=== PATIENT | male | born 1980 | race Caucasian/White ===

== ENCOUNTER 2022-12-07 17:20 | Inpatient (IN) | payer MEDICAID ==
[~2022-12-07] VITALS: Ht 182.9 cm; Wt 115.2 kg
[2022-12-07 17:25] VITALS: BP 136/87
--- NOTE | 2022-12-07 17:32 | NUR ---
42/M BIBA FROM [facility] C/O HEART PALPITATION ONSET TODAY. PT REPORTS HAVING A GROUND LEVEL FALL AND PRESENTS WITH MILD ABRASION TO EYEBROW. DENIES NAUSEA OR VOMITING. DENIES CP OR SOB. AAO4, AMBULATORY, TACHY 140. IV ESTABLISHED TO LEFT AC WITH 18G BY EMS PMH: MENTAL INCAPICITY
[2022-12-07] MEDS ORDERED: NACL 0.9% 1,000 ML IV ONE ×3 (18:00→22:10)
--- NOTE | 2022-12-07 18:20 | NUR ---
PT WENT TO XR
--- NOTE | 2022-12-07 18:30 | NUR ---
PT BACK FROM XR
[2022-12-07 18:41] LABS: BASOPHILS # (AUTO) 0.1 K/uL (0.00-0.22); BASOPHILS % (AUTO) 0.8 % (0.0-2.0); EOSINOPHILS % (AUTO) 0.3 % (0.0-4.0); HEMOGLOBIN 9.2 g/dL (12.0-18.0); LYMPHOCYTES # (AUTO) 1.7 K/uL (2.0-11.5); LYMPHOCYTES % (AUTO) 13.2 % (20.5-51.1); MEAN CORPUSCULAR HEMOGLOBIN 31 pg (27-31); MEAN CORPUSCULAR HGB CONC 34 g/dL (33-37); MONOCYTES # (AUTO) 0.7 K/uL (0.8-1.0); MONOCYTES % (AUTO) 5.7 % (1.7-9.3); NEUTROPHILS # (AUTO) 10.6 K/uL (1.8-7.7); PLATELET COUNT (AUTO) 335 K/uL (140-450); RED CELL DISTRIBUTION WIDTH 15.8 % (11.6-13.7); WHITE BLOOD COUNT (AUTO) 13.2 K/uL (4.8-10.8)
[2022-12-07 19:12] LABS: ALBUMIN 3.1 g/dL (3.4-5.0); ASPARTATE AMINOTRANSFERASE 12 U/L (15-37); CARBON DIOXIDE 23.1 mmol/L (21-32); CHLORIDE 109 mmol/L (98-107); CREATININE 1.3 mg/dL (0.6-1.3); GFR ARICAN-AMERICAN 78 mL/min (>90); GLUCOSE 160 mg/dL (74-106); MAGNESIUM 1.7 mg/dL (1.8-2.4); PHOSPHORUS 2.2 mg/dL (2.5-4.9); POTASSIUM 4.1 mmol/L (3.5-5.1); SODIUM SERUM 137 mmol/L (136-145); THYROID STIMULATING HORMONE 3.69 uIU/mL (0.34-3.74); TOTAL BILIRUBIN 0.2 mg/dL (0.0-1.0); UREA NITROGEN, BLOOD 35 mg/dL (7-18)
--- NOTE | 2022-12-07 19:30 | NUR ---
PT IS GETING THE FLUID. HE IS AWAKE AND ALERT X4. HE FOLLOWS THE COMAND AND ANSWERS QUESTIONS
--- NOTE | 2022-12-07 20:00 | NUR ---
His caregiver called to get an update and he gave the list of home meds taken at home.
--- NOTE | 2022-12-07 21:00 | NUR ---
pt went to restroom and had bowel movement.
[2022-12-07 21:23] LABS: APPEARANCE,URINE SLIGHTLY CLOUDY (CLEAR); COLOR,URINE AMBER (YELLOW)
[2022-12-07 21:24] LABS: BILIRUBIN,URINE NEGATIVE (NEGATIVE); BLOOD, URINE NEGATIVE (NEGATIVE); LEUKOCYTE ESTERASE ,URINE 3+ (NEGATIVE); NITRITE, URINE NEGATIVE (NEGATIVE); UGLUCOSE NEGATIVE (NEGATIVE)
[2022-12-07 21:39] LABS: OTHER CASTS, URINE None Seen /LPF (None Seen)
[2022-12-07] MEDS ORDERED: cefTRIAXone 1,000 MG VIAL ONE (22:04)
--- NOTE | 2022-12-07 22:11 | NUR ---
BELONGINGS LIST DONE.
[2022-12-07] MEDS ORDERED: MAG SULF 2000 MG/WATER PREMIX 50 ML IV ONE (22:15)
[2022-12-07] MEDS ORDERED: FERR-20 PO (22:47)
[2022-12-07] MEDS ORDERED: LORA10TA19 PO (22:47)
[2022-12-07] MEDS ORDERED: SYN.05 PO (22:47)
[2022-12-07] MEDS ORDERED: HAL5 PO (22:47)
[2022-12-07] MEDS ORDERED: CLON-1170 PO (22:47)
[2022-12-07] MEDS ORDERED: HYDR25CA1 PO (22:47)
[2022-12-07] MEDS ORDERED: PANT40EC PO (22:47)
[2022-12-07] MEDS ORDERED: QUET25TA PO (22:51)
[2022-12-07] MEDS ORDERED: BENZ2TAB27 PO (22:59)
[2022-12-07] MEDS ORDERED: NACL 0.9% 1,000 ML IV SCH (23:05)
--- NOTE | 2022-12-08 03:57 | NUR ---
pt asking for food. snack was provided.
--- NOTE | 2022-12-08 04:30 | NUR ---
Pt went to rest room and had bowel movement
[2022-12-08 07:14] LABS: BASOPHILS # (AUTO) 0.1 K/uL (0.00-0.22); BASOPHILS % (AUTO) 0.5 % (0.0-2.0); EOSINOPHILS # (AUTO) 0.1 K/uL (0-0.4); EOSINOPHILS % (AUTO) 0.7 % (0.0-4.0); LYMPHOCYTES # (AUTO) 1.7 K/uL (2.0-11.5); LYMPHOCYTES % (AUTO) 15.7 % (20.5-51.1); MEAN CORPUSCULAR HEMOGLOBIN 31 pg (27-31); MEAN CORPUSCULAR HGB CONC 35 g/dL (33-37); MEAN CORPUSCULAR VOLUME 88.5 fL (80-94); MONOCYTES # (AUTO) 0.9 K/uL (0.8-1.0); MONOCYTES % (AUTO) 7.9 % (1.7-9.3); NEUTROPHILS # (AUTO) 8.1 K/uL (1.8-7.7); NEUTROPHILS % (AUTO) 75.2 % (42.2-75.2); PLATELET COUNT (AUTO) 207 K/uL (140-450); RED BLOOD CELL COUNT(AUTO) 2.11 MIL/uL (4.20-6.10); RED CELL DISTRIBUTION WIDTH 15.5 % (11.6-13.7); WHITE BLOOD COUNT (AUTO) 10.8 K/uL (4.8-10.8)
[2022-12-08 07:16] LABS: ANION GAP 11.4 (8-16); CARBON DIOXIDE 24.1 mmol/L (21-32); CREATININE 1.1 mg/dL (0.6-1.3); POTASSIUM 3.5 mmol/L (3.5-5.1)
[2022-12-08 07:24] LABS: HEMOGLOBIN 6.6 g/dL (12.0-18.0)
[2022-12-08 07:25] LABS: HEMATOCRIT 18.7 % (36-52)
--- NOTE | 2022-12-08 07:29 | NUR ---
DR RAANGO NOTIFIED OF PATIENT'S CRITICAL H&H. PER DR ARANGO TELEPHONE ORDER, PLACED ORDER FOR 1 UNIT OF BLOOD TRANSFUSION.
--- NOTE | 2022-12-08 07:37 | NUR ---
PERFORMED FOBT PER DR ARANGO TELEPHONE ORDER. PATIENT POSITIVE FOR OCCULT BLOOD. DR ARANGO NOTIFIED.
--- NOTE | 2022-12-08 07:42 | NUR ---
Patient will be admitted to care of DR ARANGO. Admited to [facility]. Will go to [id number]. Belongings list completed. Report to JAMARCUS BAKER.
--- NOTE | 2022-12-08 08:00 | NUR ---
PT ARRIVED IN THE UNIT , GOT REPORT FROM THE ER NURSE
--- NOTE | 2022-12-08 09:18 | NUR ---
PATIENT HAS BEEN SCREENED AND CATEGORIZED MODERATE NUTRITION RISK. PATIENT WILL BE SEEN WITHIN 3-5 DAYS OF ADMISSION. REVIEWED BY AAYUSH ADDISON RD
[2022-12-08] MEDS ORDERED: CLONIDINE HYDROCHLORIDE 0.1 MG TAB PO PRN (09:25)
[2022-12-08] MEDS ORDERED: HYDROcodone/APAP 7.5/325 MG 1 TAB PO PRN (09:25)
[2022-12-08] MEDS ORDERED: ACETAMINOPHEN 325 MG TAB PO PRN (09:25)
[2022-12-08] MEDS ORDERED: POTASSIUM CHLORIDE 10 MEQ TABER PO PRN (09:25)
[2022-12-08] MEDS: NACL 0.9% 1,000 ML IV SCH (09:25)
[2022-12-08] MEDS ORDERED: MAG SULF 2000 MG/WATER PREMIX 50 ML IV PRN (09:25)
[2022-12-08] MEDS ORDERED: ONDANSETRON 4 MG/2 ML VIAL IVP PRN (09:25)
[2022-12-08 10:31] LABS: CHOL/HDL RATIO 3.4 (1-4.5); FREE T4 (FREE THYROXINE) 0.96 ng/dL (0.76-1.46); THYROID STIMULATING HORMONE 4.51 uIU/mL (0.34-3.74)
[2022-12-08 10:34] LABS: PROTHROMBIN TIME 10.9 secs (10.8-13.4)
[2022-12-08 12:00] VITALS: BP 140/81
[2022-12-08 16:00] VITALS: BP 132/86
[2022-12-08] MEDS: SENNA 8.6 MG TAB PO SCH (17:02)
[2022-12-08] MEDS: METOCLOPRAMIDE 10 MG/2 ML INJ VIAL IVP SCH (17:03)
--- NOTE | 2022-12-08 17:37 | NUR ---
GIVEN ONE UNIT OF BLOOD, NO REACTION. COMPLETED. BEFORE THE BLOOD PT VOMITED GROUND COFFEE BLOOD ON THE FLOOR . MEDICATED ORDERED FOR N\V. NPO AFTER MID NIGHT FOR EGD CONSENT NEED TO BE OBTAINED BY CALLING [phone] [facility] [place]
--- NOTE | 2022-12-08 19:15 | NUR ---
RECEIVED PT FROM MORNING SHIFT NURSE. PT IS LYING ON THE BED. PT IS AOX2-3, AMBULATORY, ABLE TO VERBALIZE NEEDS AND ABLE TO FOLLOW COMMANDS. PT IS ON ROOM AIR AND ON NPO EXCEPT MEDS. PT HAS IV ON RIGHT AC GAUGE 20 RUNNING WITH NS AT 100 ML/HR. PT SKIN IS INTACT BUT THERE'S SCRATCHED ON THE RIGHT FACE . PT DENIES PAIN. NO S/S OF RESPIRATORY DISTRESS NOTED. ALL SAFETY MEASURES IMPLEMENTED. BED IN LOW POSITION, BED WHEELS ON LOCK AND CALL LIGHT WITHIN REACH.
[2022-12-08 20:00] VITALS: BP 133/69
[2022-12-08] MEDS: HALOPERIDOL 5 MG TAB PO SCH (20:54)
[2022-12-08] MEDS: DOCUSATE SODIUM 100 MG GELCAP PO SCH (20:54)
[2022-12-08] MEDS: hydrOXYzine PAMOATE 25 MG CAP PO SCH (20:54)
[2022-12-08] MEDS: QUEtiapine FUMARATE 25 MG TAB PO SCH (20:54)
--- NOTE | 2022-12-08 20:54 | NUR ---
ALL SCHEDULED AND PRESCRIBED MEDICATION WAS GIVEN TO PT PER MD ORDER. ALL SAFETY MEASURES IMPLEMENTED. BED IN LOW POSITION, BED WHEELS ON LOCK AND CALL LIGHT WITHIN REACH.
[2022-12-08] MEDS ORDERED: BENZTROPINE MESYLATE PO SCH (21:00)
[2022-12-08] MEDS ORDERED: PANTOPRAZOLE 40 MG INJ VIAL IVP SCH (21:00)
[2022-12-08] MEDS ORDERED: BENZTROPINE 1 MG TAB PO SCH (21:00)
--- NOTE | 2022-12-09 00:45 | NUR ---
STATED BLOOD TRANSFUSION TO THE PT WITH PRE TRANSFUSION VS OF BP-124/80, T-9704, P-94, RR-18 WITHOUT PAIN. ALL SAFETY MEASURES IMPLEMENTED. BED IN LOW POSITION, BED WHEELS ON LOCK AND CALL LIGHT WITHIN REACH.
--- NOTE | 2022-12-09 02:00 | NUR ---
CONTACTED PT'S PIPE AND BOILER COVERS SUPERVISOR FOR EGD CONSENT FOR 5X STARTED AT 2030 UNTIL NOW BUT DIDN'T PARTS SALES ADVISOR/ANSWER THE PHONE. I JUST LEFT A MESSAGE TO RETURN A CALL. WILL ENDORSED IT TO THE MORNING NURSE.
--- NOTE | 2022-12-09 03:20 | NUR ---
BLOOD TRANSFUSION WAS DONE WITH VS; BP-120/70, T-97.4, P-88, RR-17 SATING AT 96% ALL SAFETY MEASURES IMPLEMENTED. BED IN LOW POSITION, BED WHEELS ON LOCK AND CALL LIGHT WITHIN REACH.
[2022-12-09] MEDS: NACL 0.9% 1,000 ML IV SCH (05:25)
[2022-12-09 07:12] LABS: BASOPHILS % (AUTO) 0.4 % (0.0-2.0); EOSINOPHILS # (AUTO) 0.1 K/uL (0-0.4); EOSINOPHILS % (AUTO) 1.2 % (0.0-4.0); HEMOGLOBIN 7.5 g/dL (12.0-18.0); LYMPHOCYTES # (AUTO) 1.2 K/uL (2.0-11.5); LYMPHOCYTES % (AUTO) 14.7 % (20.5-51.1); MEAN CORPUSCULAR HEMOGLOBIN 30 pg (27-31); MEAN CORPUSCULAR HGB CONC 34 g/dL (33-37); MEAN CORPUSCULAR VOLUME 88.4 fL (80-94); MONOCYTES # (AUTO) 0.6 K/uL (0.8-1.0); MONOCYTES % (AUTO) 7.6 % (1.7-9.3); NEUTROPHILS % (AUTO) 76.1 % (42.2-75.2); PLATELET COUNT (AUTO) 165 K/uL (140-450); RED BLOOD CELL COUNT(AUTO) 2.49 MIL/uL (4.20-6.10); RED CELL DISTRIBUTION WIDTH 15.9 % (11.6-13.7); WHITE BLOOD COUNT (AUTO) 7.8 K/uL (4.8-10.8)
[2022-12-09 07:27] LABS: CARBON DIOXIDE 23.7 mmol/L (21-32); CREATININE 0.9 mg/dL (0.6-1.3); POTASSIUM 3.7 mmol/L (3.5-5.1)
[2022-12-09 07:37] LABS: MAGNESIUM 1.8 mg/dL (1.8-2.4); PHOSPHORUS 2.2 mg/dL (2.5-4.9)
--- NOTE | 2022-12-09 07:41 | NUR ---
PT IS STABLE. NO ACUTE EVENTS THROUGHOUT THE NIGHT.NO S/SX OF DISTRESS AT THIS MOMENT.ALL NEEDS ATTENDED. ALL PRECAUTIONS IN PLACE. CALL LIGHT WITHIN REACH. ENDORSED TO DAY RN.
--- NOTE | 2022-12-09 07:43 | NUR ---
RECEIVED REPORT FROM SHEET FED PRINTER NURSE, CYNTHIA, FOR CONTINUITY OF CARE. PT IN BED RESTING AT THIS TIME. RESPIRATIONS ARE EVEN AND UNLABORED, ON ROOM AIR. NO SIGNS OF DISTRESS NOTED. PT IS ALERT AND ORIENTED X3, ABLE TO VERBALIZE NEEDS. NO SIGNS OF PAIN OR DISCOMFORT NOTED. CALL LIGHT WITHIN REACH. ALL SAFETY MEASURES IN PLACE.
[2022-12-09 08:00] VITALS: BP 133/61
[2022-12-09] MEDS ORDERED: LEVOTHYROXINE 0.05 MG TAB PO SCH (09:00)
[2022-12-09] MEDS ORDERED: FERROUS SULFATE 325 MG TABEC PO SCH (09:00)
[2022-12-09] MEDS ORDERED: PANTOPRAZOLE 40 MG TABEC PO SCH (09:00)
[2022-12-09] MEDS ORDERED: PANTOPRAZOLE 40 MG INJ VIAL IVP SCH (09:00)
[2022-12-09] MEDS: HALOPERIDOL 5 MG TAB PO SCH ×2 (09:01→20:20)
[2022-12-09] MEDS: SENNA 8.6 MG TAB PO SCH ×3 (09:01→17:47)
[2022-12-09] MEDS: DOCUSATE SODIUM 100 MG GELCAP PO SCH ×2 (09:02→20:20)
[2022-12-09] MEDS: LORATADINE 10 MG TAB PO SCH (09:02)
[2022-12-09] MEDS: PANTOPRAZOLE 40 MG TABEC PO SCH ×2 (09:02→20:21)
[2022-12-09] MEDS: hydrOXYzine PAMOATE 25 MG CAP PO SCH ×2 (09:02→20:20)
[2022-12-09] MEDS: METOCLOPRAMIDE 10 MG/2 ML INJ VIAL IVP SCH ×3 (09:35→17:00)
--- NOTE | 2022-12-09 10:39 | NUR ---
PT PULLED OUT IV. WILL ATTEMPT NEW IV PLACEMENT.
--- NOTE | 2022-12-09 11:15 | NUR ---
NEW IV ACCESS PLACED. PT TOLERATED WELL.
[2022-12-09] MEDS ORDERED: diphenhydrAMINE 50 MG/ML VIAL ONE (12:07)
[2022-12-09] MEDS ORDERED: MIDAZOLAM 2 MG/2 ML VIAL ONE (12:07)
[2022-12-09] MEDS ORDERED: fentaNYL citrate 0.05 MG/ML VIAL ONE (12:07)
[2022-12-09] MEDS: MIDAZOLAM 2 MG/2 ML VIAL IVP ONE ×2 (12:38→13:15)
[2022-12-09] MEDS: fentaNYL citrate 0.05 MG/ML VIAL IVP ONE ×2 (12:39→13:15)
--- NOTE | 2022-12-09 13:13 | NUR ---
PT RETURNED FROM EGD PROCEDURE. NO SIGNS OF PAIN OR DISTRESS NOTED.
[2022-12-09 13:24] LABS: BILIRUBIN,DIRECT 0.1 mg/dL (0.0-0.3); TOTAL BILIRUBIN 0.3 mg/dL (0.0-1.0)
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
[2022-12-09 16:00] VITALS: BP 126/82
--- NOTE | 2022-12-09 16:22 | NUR ---
PT PLAYING WITH IV AND IV WAS PULLED OUT. NEW IV ACCESS PLACED.
--- NOTE | 2022-12-09 18:12 | NUR ---
SCHEDULED MEDICATIONS DUE GIVEN. WILL CONTINUE TO MONITOR.
--- NOTE | 2022-12-09 19:00 | NUR ---
PT STATES IV WAS CAUGHT ON BLANKETS. NEW IV ACCESS PLACED TO R HAND, 24 G.
--- NOTE | 2022-12-09 19:25 | NUR ---
ENDORSED PT TO WAN SUPPORT SPECIALIST NURSECYNTHIA, FOR CONTINUITY OF CARE. PT IS STABLE.
--- NOTE | 2022-12-09 19:26 | NUR ---
RECEIVED PT FROM MORNING SHIFT NURSE. PT IS LYING ON THE BED. PT IS AOX3-4, AMBULATORY, ABLE TO VERBALIZE NEEDS AND ABLE TO FOLLOW COMMANDS. PT IS ON ROOM AIR AND ON REGULAR DIET. PT HAS IV ON RIGHT HAND GAUGE 24 RUNNING WITH NS AT 100 ML/HR. PT SKIN IS INTACT BUT THERE'S SCRATCH ON THE RIGHT SIDE OF THE FACE. PT DENIES PAIN AT THIS TIME. NO S/S OF RESPIRATORY DISTRESS NOTED. ALL SAFETY MEASURES IMPLEMENTED. BED IN LOW POSITION, BED WHEELS ON LOCK AND CALL LIGHT WITHIN REACH.
[2022-12-09] MEDS: QUEtiapine FUMARATE 25 MG TAB PO SCH (20:22)
--- NOTE | 2022-12-09 21:38 | NUR ---
SCHEDULED MEDICATION WAS GIVEN TO PT PER MD ORDER. ALL SAFETY MEASURES IMPLEMENTED. BED IN LOW POSITION, BED WHEELS ON LOCK AND CALL LIGHT WITHIN REACH.
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
[2022-12-10] VITALS: BP 124/73
--- NOTE | 2022-12-10 | NUR ---
PT WAS GIVEN WARM BLANKET. PT DENIES PAIN AT THIS TIME. NO S/S OF RESPIRATORY DISTRESS NOTED. ALL SAFETY MEASURES IMPLEMENTED. BED IN LOW POSITION, BED WHEELS ON LOCK AND CALL LIGHT WITHIN REACH.
[2022-12-10] MEDS: NACL 0.9% 1,000 ML IV SCH (01:30)
--- NOTE | 2022-12-10 02:00 | NUR ---
PT IS SLEEPING. CHEST RISE AND FALL SYMMETRICALLY NOTED. RESPIRATION IS EVEN AND UNLABORED.ALL SAFETY MEASURES IMPLEMENTED. BED IN LOW POSITION, BED WHEELS ON LOCK AND CALL LIGHT WITHIN REACH.
--- NOTE | 2022-12-10 04:00 | NUR ---
MORNING CARE WAS DONE TO PT. CHANGED LINENS, GOWNS AND CHUCKS. NO COMPLAIN OF PAIN AT THIS TIME. NO S/S OF RESPIRATORY DISTRESS NOTED. ALL SAFETY MEASURES IMPLEMENTED. BED IN LOW POSITION, BED WHEELS ON LOCK AND CALL LIGHT WITHIN REACH.
--- NOTE | 2022-12-10 06:21 | NUR ---
PT REFUSED BLOOD DRAW. EDUCATED THE IMPORTANCE OF IT TO THE PT BUT STILL PT REFUSED.
--- NOTE | 2022-12-10 07:23 | NUR ---
PT IS STABLE. NO ACUTE EVENTS THROUGHOUT THE NIGHT.NO S/SX OF DISTRESS AT THIS MOMENT.ALL NEEDS ATTENDED. ALL PRECAUTIONS IN PLACE. CALL LIGHT WITHIN REACH. ENDORSED TO DAY NURSE.
--- NOTE | 2022-12-10 07:51 | NUR ---
GOT REPORT FROM THE NIGHT NURSE, PT SLEEPING NO SOB [id number]
[2022-12-10 08:00] VITALS: BP 101/74
[2022-12-10 08:08] LABS: FOLIC ACID 12.2 ng/mL (>3.0)
[2022-12-10] MEDS: PANTOPRAZOLE 40 MG TABEC PO SCH (09:37)
[2022-12-10] MEDS: METOCLOPRAMIDE 10 MG/2 ML INJ VIAL IVP SCH ×3 (09:37→13:21)
[2022-12-10] MEDS: LORATADINE 10 MG TAB PO SCH (09:37)
[2022-12-10] MEDS: DOCUSATE SODIUM 100 MG GELCAP PO SCH (09:37)
[2022-12-10] MEDS: HALOPERIDOL 5 MG TAB PO SCH (09:38)
[2022-12-10] MEDS: SENNA 8.6 MG TAB PO SCH ×2 (09:38→13:21)
[2022-12-10] MEDS: hydrOXYzine PAMOATE 25 MG CAP PO SCH (09:42)
[2022-12-10] MEDS ORDERED: NITR100C7 PO (10:47)
[2022-12-10 11:41] VITALS: BP 101/74
--- NOTE | 2022-12-10 13:33 | NUR ---
PT FULLED OUT IV, AND REFUSED FOR NEW INSERTION TO GIVE REGLAN SO WASTED.[id number]
--- NOTE | 2022-12-10 16:16 | NUR ---
PT DISCHARGED TO THE PRISON, REPORT GIVEN, IV AN ID BAND REMOVED, PT ESCORTED TO THE CAR WITHOUT ANY DISCOMFORT.[id number]
== END 2022-12-10 16:05 | disposition home or self-care (01) | DRG 463 ==
LOC: MED 17:20 → MTU 23:06
PROC: 0DJ08ZZ Inspection of Upper Intestinal Tract, Via Natural or Artificial Opening Endoscopic (ICD-10-PCS; 2022-12-09)
PROC: 30233N1 Transfusion of Nonautologous Red Blood Cells into Peripheral Vein, Percutaneous Approach (ICD-10-PCS; principal; 2022-12-09 15:50)
DX: N39.0 Urinary tract infection, site not specified (principal); G93.41 Metabolic encephalopathy; E44.1 Mild protein-calorie malnutrition; D50.9 Iron deficiency anemia, unspecified; F79 Unspecified intellectual disabilities; K44.9 Diaphragmatic hernia without obstruction or gangrene; K21.9 Gastro-esophageal reflux disease without esophagitis; G40.909 Epilepsy, unspecified, not intractable, without status epilepticus; I10 Essential (primary) hypertension; E03.9 Hypothyroidism, unspecified; J31.0 Chronic rhinitis; E86.0 Dehydration; Z20.822 Contact with and (suspected) exposure to COVID-19; Z68.34 Body mass index [BMI] 34.0-34.9, adult
CPT/HCPCS: 36415; 70450; 71045; 71260; 74018; 80048; 80053; 81001; 82150; 82247; 82248; 82607; 82728; 82746; 83010; 83036; 83540; 83605; 83690; 83735; 83880; 84100; 84439; 84443; 84484; 85025; 85045; 85379; 85610; 85730; 86886; 86900; 86901; 86920; 87040; 87081; 87086; 90471; 90715; 96365; 96366; 99291; C9113; J0696; J1200; J1630; J2250; J2405; J2765; J3010; J3475; J7030; J7060; P9016; Q0092; Q0177; Q9967